=== PATIENT | female | born 1940 | race Caucasian/White ===

== ENCOUNTER → 2016-03-04 | Outpatient (CLI) | payer MEDICARE, OTHER ==
--- NOTE | 2016-03-04 14:50 | MAM ---
EXAM DESCRIPTION: MAMMO BREAST SCREENING BILATERAL CAD, images were reviewed with CAD technology, R2 computer-aided detection. CLINICAL HISTORY: [facility]. COMPARISON: 2012. FINDINGS: Routine views are obtained. Nodular parenchymal contour with increased mammographic density and stable pattern. No dominant mass, architectural distortion or clustered microcalcification.. IMPRESSION: Benign exam. BIRAD CATEGORY: 2 BENIGN RECOMMENDATIONS: FOLLOW-UP: Routine screening mammogram in one year. According to the [employer], yearly mammograms are recommended starting at age 40 and continuing as long as a woman is in good health. Any breast change noted on a breast self-exam should be reported promptly to the patient's healthcare provider. Breast MRI is recommended for women with an approximately 20-25% or greater lifetime risk of breast cancer, including women with a strong family history of breast or ovarian cancer and women who have been treated for Hodgkin's disease. Electronically signed by: Ana Laura Forde 03/04/2016 14:48
== END ==
LOC: MAMMO 12:57
PROVIDERS: ATTEND Family Medicine
DX: Z12.31 Encounter for screening mammogram for malignant neoplasm of breast (principal)
CPT/HCPCS: 77052; G0202

== ENCOUNTER → 2016-09-15 | Outpatient (CLI) | payer MEDICARE, OTHER | END | disposition home or self-care (01) | LOC: GMAJ 10:44 | PROVIDERS: ATTEND Family Medicine | DX: E03.9 Hypothyroidism, unspecified (principal) ==

== ENCOUNTER → 2017-03-11 | Outpatient (CLI) | payer MEDICARE, OTHER ==
--- NOTE | 2017-03-24 11:31 | MAM ---
EXAM DESCRIPTION: 3D Screening BILATERAL : Digital Mammography. CLINICAL HISTORY: 76 years Female SCREENING . No complaints. No family history. Postmenopausal. Has taken HRT 5 or more years ago. Benign right breast biopsy. COMPARISON: 2-D digital screening bilateral studies on 03/04/2016 and 01/22/2015. Report from prior examination also reviewed. TECHNIQUE: Bilateral CC and MLO projection full-field images, 3-D tomosynthesis digital mammographic technique. Also bilateral synthesized CC/ MLO full-field images. CAD not utilized. FINDINGS: The breast parenchymal density pattern is: Heterogeneously dense breast tissue, which may obscure small masses. No skin thickening or nipple retraction bilateral solitary microcalcifications. Bilateral vascular calcifications. No focal, stellate mass or density, focal asymmetry , and no suspicious microcalcifications bilaterally. Stable mammograms compared to prior studies, taking into account differences in mammographic technique IMPRESSION: BI-RADS CATEGORY: 2 - BENIGN FINDINGS. FOLLOW UP: Routine digital bilateral screening, one year interval from February 2017. Written communication explaining the IMPRESSION and follow-up, will be mailed to the patient and referring health care provider. According to the [employer], yearly mammograms are recommended starting at age 40 and continuing as long as a woman is in good health. Any breast change noted on a breast self-exam should be reported promptly to the patient's healthcare provider. Breast MRI is recommended for women with an approximately 20-25% or greater lifetime risk of breast cancer, including women with a strong family history of breast or ovarian cancer and women who have been treated for Hodgkin's disease. A negative mammographic report should not delay tissue diagnosis in patients with significant clinical history or physical findings. Extremely dense breast tissue limits the sensitivity of digital mammography. Electronically signed by: Wade Farr MD 03/24/2017 11:30 AM [facility]
== END ==
LOC: MAMMO 13:00
PROVIDERS: ATTEND Family Medicine
DX: Z12.31 Encounter for screening mammogram for malignant neoplasm of breast (principal)

== ENCOUNTER → 2017-08-30 | Outpatient (CLI) | payer MEDICARE, OTHER | LOC: GMAJ 13:42 | PROVIDERS: ATTEND Family Medicine | DX: E03.9 Hypothyroidism, unspecified (principal) ==

== ENCOUNTER → 2017-12-02 | Day surgery (SDC) | payer MEDICARE, OTHER ==
--- NOTE | 2017-11-30 14:34 | RAD ---
EXAM DESCRIPTION: Chest,2 Views CLINICAL HISTORY: preop COMPARISON: None available FINDINGS: The cardiomediastinal silhouette is unremarkable. There is no airspace consolidation or pleural effusion. The bronchovascular markings are within normal limits, and the lungs are not hyperinflated. There is no pneumothorax or acute fracture. IMPRESSION: Negative exam. Electronically signed by: Minh Valdivia MD 11/30/2017 2:33 PM CDT
[~2017-12-02] MED LIST: ACETAMINOPHEN IV 1000MG 100 ML ONE; DEXAMETHASONE INJ 10 MG/ML VIAL ONE; HYDROmorphone HCL INJ 2 MG/ML VIAL ONE; LACTATED RINGERS 1,000 ML BAG IV ONE; LACTATED RINGERS 1,000 ML ONE; LIDOCAINE 1% 10 ML VIAL INJ ONE; METOCLOPRAMIDE HCL INJ 10 MG/2 ML VIAL ONE; PROPOFOL 200 MG/20 ML VIAL IV ONE; ROCURONIUM BROMIDE 10 MG/ML VIAL ONE; SODIUM CHL 0.9% 100ML MINI-BAG 100 ML IVPB ONE; SUGAMMADEX SODIUM 200 MG/2 ML VIAL IV ONE; ceFAZolin SODIUM 1 GM VIAL ONE; ePHEDrine SULF 50 MG/ML ONE; fentaNYL CITRATE INJ 50 MCG/ML AMP ONE; raNITIdine HCL INJ 25 MG/ML VIAL ONE
--- NOTE | 2017-12-02 10:22 | OP ---
DATE OF PROCEDURE: 12/02/17 PREOPERATIVE DIAGNOSIS: 1. Subcutaneous mass of the left upper back which is tender and growing. POSTOPERATIVE DIAGNOSIS: 1. Subcutaneous mass of the left upper back which is tender and growing. PROCEDURE: 1. Excision of subcutaneous mass, left upper back. SURGEON: Ronny Laird MD. POWERTRAIN DESIGN ENGINEER: None. ANESTHESIA: General endotracheal anesthesia and local infiltration of 1% lidocaine. INDICATION: The patient is a 77-year-old female with a mass on her upper back which has grown. It has become more uncomfortable with gentle palpation as in sitting. After the risks, benefits and alternatives to the procedure were discussed and accepted, she was brought to the Surgical Suite today for excision. FINDINGS: The mass did not extend below the fascia. It was somewhat stuck to the muscular fascia. The excised mass was approximately 5.5 cm in greatest diameter. PROCEDURE: After the patient underwent general anesthesia in the supine position, she was then turned to the prone position and her back was prepped and draped in the usual sterile manner. A surgical time-out was taken. A transverse incision was then fashioned, first with a marking pen and then with infiltration of anesthesia. The skin was incised with a sharp knife and dissection was carried down through the skin into the subcutaneous tissue using electrocautery. The mass was then identified. Using blunt dissection and electrocautery, it was dissected free circumferentially and removed. It was passed from the surgical field. At this point, there was a small rent in the fascia of the muscle which was closed with interrupted 3-0 Vicryl figure-of- eight sutures. The subcutaneous tissue was then irrigated with local anesthesia and the fascia was infiltrated with local anesthesia. Hemostasis was noted to be adequate. The subcutaneous tissues were reapproximated with interrupted 3-0 Vicryl sutures. The skin edges were approximated with 4-0 Nylon vertical mattress sutures. Sterile pressure dressing was applied. The patient was awakened after she was turned in the supine position and then taken to the Recovery Room in stable condition. Estimated blood loss was less than 10 mL. All sponge, needle and instrument counts were correct. #[id number] [facility]
[2017-12-02 10:48] VITALS: O2SAT 98
[2017-12-02 11:27] VITALS: BP 136/64; TEMP 97.2
== END ==
LOC: AMB 05:51
PROVIDERS: ATTEND Surgery
DX: D17.1 Benign lipomatous neoplasm of skin and subcutaneous tissue of trunk (principal); I10 Essential (primary) hypertension; R00.1 Bradycardia, unspecified; Z88.0 Allergy status to penicillin; Z79.899 Other long term (current) drug therapy
CPT/HCPCS: 00300; 21931; 36415; 71046; 80048; 81001; 85025; 87086; 93005; J0690; J1100; J2765; J2780; J3010; J3490; J7050; J7120

== ENCOUNTER → 2018-03-08 | Outpatient (CLI) | payer MEDICARE, OTHER | LOC: GMAJ 10:37 | PROVIDERS: ATTEND Family Medicine | DX: E03.9 Hypothyroidism, unspecified (principal) ==

== ENCOUNTER → 2018-04-21 | Outpatient (CLI) | payer MEDICARE, OTHER ==
--- NOTE | 2018-04-26 10:33 | MAM ---
EXAM DESCRIPTION: 3D Screening BILATERAL : Digital Mammography. CLINICAL HISTORY: 77 years Female SCREENING . No complaints. No personal or family history of breast cancer. Childbirth. Hysterectomy 30 years ago. Has taken HRT. Prior right breast biopsy benign. Lifetime risk of developing breast cancer (Tyrer-Cuzick model)(%): 3.2. COMPARISON: Bilateral screening digital breast tomosynthesis 03/11/2017.. TECHNIQUE: Bilateral CC and MLO projection full-field images, digital tomosynthesis mammographic technique. Bilateral digital 2-D full-field MLO images. CAD not available for tomosynthesis or 2-D images. FINDINGS: The breast parenchymal density pattern is: Heterogeneously dense breast tissue, which may obscure small masses. No skin thickening or nipple retraction. Bilateral solitary microcalcifications and bilateral coarse calcifications. Left axillary lymph nodes. Small region of focal asymmetry or architectural distortion in the lower outer quadrant of the anterior third of the right breast approximately 3 cm from the nipple. Not as well seen on the prior study. No definite calcifications. No new focal, stellate mass or density, focal asymmetry , and no suspicious microcalcifications left breast. IMPRESSION: BI-RADS CATEGORY: 0 - INCOMPLETE- Need additional imaging evaluation. FOLLOW-UP: Recall for additional imaging: Targeted right breast ultrasound region of interest as described. Optional follow-up diagnostic tomosynthesis imaging right breast if indicated by ultrasound findings.. Written communication concerning the IMPRESSION and Follow-up, will be mailed to the patient and referring health care provider. Electronically signed by: Wade Farr MD 04/26/2018 10:29 AM CDT
== END ==
LOC: MAMMO 14:00
PROVIDERS: ATTEND Family Medicine
DX: Z12.31 Encounter for screening mammogram for malignant neoplasm of breast (principal)

== ENCOUNTER → 2018-05-09 | Outpatient (CLI) | payer MEDICARE, OTHER ==
--- NOTE | 2018-05-10 13:01 | US ---
EXAM DESCRIPTION: Breast,Right: Ultrasound CLINICAL HISTORY: 77 [id number] COMPARISON: Digital screening bilateral breast tomosynthesis 04/21/2018. No diagnostic tomosynthesis images performed today. TECHNIQUE: Transcutaneous scanning of the right breast utilizing herron-scale and Doppler modes. Scanning performed by the wheel molder and Dr. Farr. FINDINGS: Scanning of the right breast lower outer quadrant 6:00 to 9:00, anterior third of the breast. Mixture of fibroglandular and fatty echotexture. 4 cm from the nipple is a hypoechoic mostly circumscribed solid mass with mixed posterior acoustic enhancement and shadowing. Wider than tall orientation and nonvascular. Dimensions 3.9 x 2.0 mm. No large or solid masses were seen. No distinct cyst. No parenchymal edema or large calcification. No overlying skin changes. Normal vascularity. IMPRESSION: BI-RADS CATEGORY: 3 - PROBABLY BENIGN. Management: Short interval (6-month) follow-up diagnostic digital mammography and targeted right breast ultrasound. The FINDINGS and the FOLLOW-UP plan were reviewed in person with the patient after the examination. Written communication explaining the IMPRESSION and FOLLOW-UP will be mailed to the patient and referring care provider. Electronically signed by: Wade Farr MD 05/10/2018 12:58 PM CDT
== END ==
LOC: US 14:00
PROVIDERS: ATTEND Family Medicine
DX: R92.8 Other abnormal and inconclusive findings on diagnostic imaging of breast (principal)

== ENCOUNTER → 2018-09-16 | Outpatient (CLI) | payer MEDICARE, OTHER | LOC: GMAJ 10:25 | PROVIDERS: ATTEND Family Medicine | DX: E03.9 Hypothyroidism, unspecified (principal); I10 Essential (primary) hypertension ==

== ENCOUNTER → 2018-12-01 | Outpatient (CLI) | payer MEDICARE, OTHER ==
--- NOTE | 2018-12-02 15:32 | US ---
EXAM DESCRIPTION: 3D Diagnostic, Right (accession [id number]), Breast,Right (accession [id number]): Ultrasound CLINICAL HISTORY: 78 yearsFemale 6 MONTHS FOLLOW-UP . Focal asymmetry right breast. No complaints. No personal or family history of breast cancer. Menarche [age] years. Childbirth. Postmenopausal 30+ years. Hormone replacement 5 or more years ago. Benign right breast biopsy. Lifetime risk of developing breast cancer (Tyrer-Cuzick model)(%): 2.9. COMPARISON: Bilateral screening digital breast tomosynthesis 04/21/2018. Targeted right breast diagnostic ultrasound 05/09/2018. TECHNIQUE: Right breast LM, CC, and MLO projection full-field images, digital mammographic tomosynthesis technique. Right breast 2-D digital full-field images. LM, CC, and MLO projections. CAD not available. . Transcutaneous scanning of the right breast utilizing herron-scale mode. Scanning performed by the hides and skins colorer ; observation by Dr. Farr. FINDINGS: The breast parenchymal density pattern is: Heterogeneously dense breast tissue, which may obscure small masses. No skin thickening or nipple retraction scattered solitary microcalcifications. Skin moles. Focal asymmetry not well-demonstrated on these images.. No new focal, stellate mass or density, focal asymmetry , and no suspicious microcalcifications right breast. Ultrasound: Scanning of the anterior third of the right breast in the periareolar region and also lower outer quadrant. Small ducts are noted. Also small cysts. No dominant solid mass or large calcifications. No edema. No overlying skin changes. IMPRESSION: Benign exam. Ducts and small cysts. BIRAD CATEGORY: 2 BENIGN FINDINGS. RECOMMENDATIONS: FOLLOW UP: Return to routine digital bilateral mammographic screening, after April 22, 2019 , one year anniversary date for routine follow-up left breast. Written communication explaining the IMPRESSION and follow-up, will be mailed to the patient and referring health care provider. The FINDINGS and the FOLLOW-UP plan were reviewed in person with the patient after the examination. According to the [employer], yearly mammograms are recommended starting at age 40 and continuing as long as a woman is in good health. Any breast change noted on a breast self-exam should be reported promptly to the patient's healthcare provider. Breast MRI is recommended for women with an approximately 20-25% or greater lifetime risk of breast cancer, including women with a strong family history of breast or ovarian cancer and women who have been treated for Hodgkin's disease. A negative mammographic report should not delay tissue diagnosis in patients with significant clinical history or physical findings. Extremely dense breast tissue limits the sensitivity of digital mammography. Written communication explaining the IMPRESSION and follow-up, will be mailed to the patient and referring health care provider. The FINDINGS and the FOLLOW-UP plan were reviewed in person with the patient after the examination. No suspicious or significant clinical findings. The region of interest should be followed on clinical grounds, and if noted to change in size or character, a targeted/directed follow-up on US examination may be performed. Electronically signed by: Wade Farr MD 12/02/2018 3:31 PM CDT
== END ==
LOC: MAMMO 14:00
PROVIDERS: ATTEND Family Medicine
DX: R92.8 Other abnormal and inconclusive findings on diagnostic imaging of breast (principal); N60.01 Solitary cyst of right breast
CPT/HCPCS: 76641; 77065; G0279

== ENCOUNTER → 2019-01-23 | Outpatient (CLI) | payer MEDICARE, OTHER | LOC: GMAJ 10:17 | PROVIDERS: ATTEND Family Medicine | DX: E03.9 Hypothyroidism, unspecified (principal); I10 Essential (primary) hypertension; E78.2 Mixed hyperlipidemia ==

== ENCOUNTER → 2019-06-22 | Outpatient (CLI) | payer MEDICARE, OTHER ==
--- NOTE | 2019-06-26 10:06 | MAM ---
EXAM DESCRIPTION: 3D Screening BILATERAL : Digital Mammography. CLINICAL HISTORY: 78 years Female SCREENING . No complaints or personal history of breast cancer. Remote family history of breast and ovarian cancer. Menarche age 10. Childbirth age 21. Menopause age 47. Benign right breast biopsy no HRT. Lifetime risk of developing breast cancer (Tyrer-Cuzick model)(%): 2.9. COMPARISON: Bilateral screening digital breast tomosynthesis April 2018. Diagnostic tomosynthesis right breast November 2018 with ultrasound. TECHNIQUE: Bilateral CC and MLO projection full-field images, digital tomosynthesis mammographic technique. Bilateral digital 2-D full-field MLO images. CAD available for 2-D images. FINDINGS: The breast parenchymal density pattern is: Heterogeneously dense breast tissue, which may obscure small masses. No skin thickening or nipple retraction. Bilateral skin mole markers. No new focal, stellate mass or density, focal asymmetry , and no suspicious microcalcifications bilaterally. Stable mammograms compared to prior study. Taking into account, differences in mammographic technique. IMPRESSION: Benign exam. BIRAD CATEGORY: 2 BENIGN FINDINGS. RECOMMENDATIONS: FOLLOW UP: Routine digital bilateral mammographic screening, one year interval from June 2019. Written communication explaining the IMPRESSION and follow-up, will be mailed to the patient and referring health care provider. According to the [employer], yearly mammograms are recommended starting at age 40 and continuing as long as a woman is in good health. Any breast change noted on a breast self-exam should be reported promptly to the patient's healthcare provider. Breast MRI is recommended for women with an approximately 20-25% or greater lifetime risk of breast cancer, including women with a strong family history of breast or ovarian cancer and women who have been treated for Hodgkin's disease. A negative mammographic report should not delay tissue diagnosis in patients with significant clinical history or physical findings. Extremely dense breast tissue limits the sensitivity of digital mammography. Electronically signed by: Wade Farr MD 06/26/2019 10:04 AM CDT
== END ==
LOC: MAMMO 13:00
PROVIDERS: ATTEND Family Medicine
DX: Z12.31 Encounter for screening mammogram for malignant neoplasm of breast (principal)

== ENCOUNTER → 2019-07-25 | Outpatient (CLI) | payer MEDICARE, OTHER | LOC: GMAJ 11:01 | PROVIDERS: ATTEND Family Medicine | DX: E03.9 Hypothyroidism, unspecified (principal) ==

== ENCOUNTER → 2019-11-30 | Outpatient (CLI) | payer MEDICARE, OTHER | LOC: GMAJ 10:56 | PROVIDERS: ATTEND Family Medicine | DX: E03.8 Other specified hypothyroidism (principal); I10 Essential (primary) hypertension ==